=== PATIENT | female | born 1975 | race Caucasian/White ===

== ENCOUNTER → 2016-12-06 | Outpatient (CLI) | payer OTHER ==
[2016-10-08 10:57] VITALS: BP 135/85
[~2016-12-06] MED LIST: CLIN-44 PO; FLUO20CA16 PO; HYDR-971 PO; QUET400T4 PO
--- NOTE | 2016-12-06 14:23 | RAD ---
Chest, 2 views, 12/06/2016: History: Shortness of breath, COPD The heart size and pulmonary vascularity are normal. There is minimal linear scarring or atelectasis in the right base. No pulmonary consolidation is seen. There is no evidence of pleural fluid. There is minimal spurring in the spine. IMPRESSION: Minimal right basilar linear scarring or atelectasis.
--- NOTE | 2016-12-06 14:27 | RAD ---
Lumbar spine, 3 views, 12/06/2016: History: Chronic low back pain There is a minimal lumbar scoliosis. The lumbar vertebral heights are well-maintained. The intervertebral disc spaces are fairly well preserved. There is only minimal scattered marginal spurs. A single surgical clip is projected over the mid pelvis to the left of midline. IMPRESSION: 1. Minimal lumbar scoliosis. 2. Minimal degenerative change. 3. No acute abnormality is detected.
== END | disposition home or self-care (01) ==
LOC: RAD 10:00
PROVIDERS: ATTEND Surgery
DX: J45.909 Unspecified asthma, uncomplicated (principal); J44.9 Chronic obstructive pulmonary disease, unspecified; J98.11 Atelectasis; F43.10 Post-traumatic stress disorder, unspecified; I51.89 Other ill-defined heart diseases
CPT/HCPCS: 71020; 72100